=== PATIENT | female | born 1935 | race Caucasian/White ===

== ENCOUNTER 2019-10-10 19:55 | Emergency (ER) | payer MEDICARE, OTHER, SELFPAY ==
--- NOTE | 2019-10-10 20:16 | DI.CT.S_ITS ---
PROCEDURE: CT CERVICAL SPINE WO CON INDICATIONS: fall, takes anticoagulant TECHNIQUE: Noncontrast 3 mm thick sections acquired from the skull base to the T4 level. Sagittal and coronal reformats were then constructed. For radiation dose reduction, the following was used: automated exposure control, adjustment of mA and/or kV according to patient size. COMPARISON: None. FINDINGS: Image quality: Excellent. Bones: No fractures or dislocations. There is 3 mm of anterolisthesis of C4 on C5. Ankylosis of C3 and C4. Multilevel disc space height loss, endplate sclerosis and cystic change, and osteophytosis. Uncovertebral joint hypertrophy. Loss of the cervical spine lordosis. Visualized superior ribs are intact. Soft tissues: Prevertebral soft tissues are normal in thickness. No paravertebral hematomas. No apical pneumothoraces. Patchy airspace opacity in the right upper lobe. Adjacent cystic change. Biapical pleural scarring. Small right thyroid nodule. IMPRESSION: 1. No acute osseous abnormality. 2. Patchy airspace opacity in the right upper lobe. Favor scarring over infectious/inflammatory etiology. 3. 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 Dictated by: Jose Manuel Harvey M.D. on 10/10/2019 at 20:55 Approved by: Jose Manuel Havrey M.D. on 10/10/2019 at 21:04
--- NOTE | 2019-10-10 20:16 | DI.CT.S_ITS ---
PROCEDURE: CT HEAD/BRAIN WO CON INDICATIONS: fall, takes anticoagulant TECHNIQUE: Noncontrast 4.5 mm thick angled axial sections acquired from the foramen magnum to the vertex, with coronal and sagittal reformats. For radiation dose reduction, the following was used: automated exposure control, adjustment of mA and/or kV according to patient size. COMPARISON: None. FINDINGS: Image quality: Excellent. CSF spaces: Basal cisterns are patent. No extra-axial fluid collections. Ventricles are normal in size and shape. Prominent lateral ventricles. Brain: No midline shift. Basal ganglia calcifications. No intracranial masses or hemorrhage. No area of hypodensity in a large vascular distribution to suggest acute infarction. Periventricular hypodensity consistent with chronic microvascular ischemic change. Age-related parenchymal loss. Skull and face: Calvarium and visualized facial bones are intact, without suspicious lesions. Sinuses: Visualized sinuses and mastoids are clear. IMPRESSION: No acute intracranial abnormality. Dictated by: Jose Manuel Harvey M.D. on 10/10/2019 at 20:52 Approved by: Jose Manuel Harvey M.D. on 10/10/2019 at 20:54
[2019-10-10 20:23] VITALS: BP 135/76; PULSE 86; RESP 18; TEMP 37; O2SAT 98; BMI 31.3
[2019-10-10 20:26] LABS: Add Manual Diff / Slide Review NO; Basophils Absolute Auto 100 /uL (0-100); Eosinophils Absolute Auto 100 /uL (0-450); Hematocrit 39.6 % (36-46); Hemoglobin 13.4 g/dL (12.0-16.0); Lymphocytes Absolute Auto 1800 /uL (1100-4500); Lymphocytes Percent Auto 16.4 % (25-40); Mean Corpuscular HGB Conc 33.9 % (30-36); Mean Corpuscular Volume 103.4 fL (80-100); Monocytes Absolute Auto 800 /uL (0-900); Monocytes Percent Auto 7.1 % (3-14); Neutrophils Absolute Auto 8400 /uL (1500-7000); Neutrophils Percent Auto 74.5 % (50-75); Platelet Count 372 X10^3/uL (150-400); Red Blood Cell Count 3.83 X10^6/uL (4.0-5.2); Red Cell Distribution Width 14.5 % (11.6-14.8); White Blood Cell Count 11.3 X10^3/uL (4.5-11.0)
[2019-10-10 20:32] LABS: INR 3.7 (0.9-1.3)
[2019-10-10 20:35] LABS: PTT Partial Thromboplastin Tim 38 SECONDS (26.4-36.2)
[2019-10-10 20:37] LABS: Alanine Aminotransferase 28 IU/L (<35); Albumin 4.5 g/dL (3.5-5.0); Albumin Globulin Ratio 1.4 (1.0-2.8); Alkaline Phosphatase 63 U/L (38-126); Aspartate Aminotransferase 39 IU/L (14-36); BUN Creatinine Ratio 24.7 (6-22); Bilirubin Total 0.8 mg/dL (0.2-1.3); Blood Urea Nitrogen 24 mg/dL (7-17); Calcium 9.2 mg/dL (8.4-10.2); Carbon Dioxide 29 mmol/L (22-32); Chloride 96 mmol/L (98-107); Creatine Kinase 45 U/L (30-135); Globulin 3.2 g/dL (1.7-4.1); Glucose 122 mg/dL (80-110); HEMOLYSIS < 15 (0-50); Potassium 3.6 mmol/L (3.4-5.1); Sodium 136 mmol/L (137-145); Total Protein 7.7 g/dL (6.3-8.2)
[2019-10-10 20:49] LABS: Troponin I 0.029 ng/mL (0.01-0.034)
[2019-10-10 21:25] VITALS: PULSE 75; RESP 29; O2SAT 95
[2019-10-10 21:30] VITALS: PULSE 72; RESP 22; O2SAT 95
[2019-10-10 21:42] VITALS: BP 116/57; PULSE 71; RESP 33; O2SAT 95
--- NOTE | 2019-10-10 21:50 | PC.NURSE ---
Left leg wrapped and dressed before discharge
--- NOTE | 2019-10-10 22:28 | ED_ITS ---
HPI - Fall <Biju MorrellJESUS ALBERTO Kothari - Last Filed: 10/10/19 23:00> General Chief Complaint: Trauma Stated Complaint: Modified trauma Time Seen by Provider: 10/10/19 20:16 Source: patient and family Mode of arrival: Wheelchair Limitations: no limitations History of Present Illness HPI Narrative: This is a 84 year female, nonsmoker, who presents to ED from [facility] via POV for evaluation for head injury since patient takes Coumadin daily for AFib and recent mitral clip procedure done at [facility] on 10/03/19. Patient reports she was working in the garden and tripped on a garden hose and fell backwards and landed on buttock and hit her head on a round. Patient denies losing consciousness, vision change, headache, neck pain, tingling/numbness to extremities, or vomiting since injury. Patient denies having chest pain, breathing difficulty, dizziness prior to the fall. Patient also has large area bruise and skin tear on left lower extremity which was repaired at [facility] before arriving to ED and reports she had received tetanus immunization today. Patient referred to [facility] Emergency room since [facility] CT scan not working. Related Data Home Medications Medication Instructions Recorded Confirmed Aspir-81 10/10/19 bumetanide 10/10/19 digoxin PO DAILY 10/10/19 gabapentin BID 10/10/19 metformin 500 mg PO DAILY 10/10/19 metoprolol succinate 50 mg PO 10/10/19 polyethylene glycol 3350 [Miralax] PRN 10/10/19 potassium chloride meq PO BID 10/10/19 prednisone DAILY 10/10/19 senna 8.6 mg PO 10/10/19 warfarin 0.5 tab PO DAILY 10/10/19 Review of Systems <Biju MorrellNielsJESUS ALBERTO Edmondson - Last Filed: 10/10/19 23:00> Review of Systems Narrative: General: Denies fever, chills, fatigue, malaise, sweats. HEENT: Denies sinus pain, ear pain, sore throat, difficulty swallowing, dizziness. Respiratory: Denies dyspnea, cough, wheezing, hemoptysis, sputum. Cardiovascular: Denies chest pain, palpitations, orthopnea, edema. Gastrointestinal: Denies nausea, vomiting, abdominal pain, diarrhea, constipation, melena. : Denies dysuria, frequency, incontinence, hematuria, urinary retention. Musculoskeletal: Denies weakness, joint pain or bony pain. Skin: HPI Neurologic: See HPI Psychiatric: No concerning psychosocial issues. 12-point review of systems is negative except for those stated above. Patient History <JESUS ALBERTO iDez - Last Filed: 10/10/19 23:00> Medical History Afib (Acute) Heart failure (Acute) Hypertension (Acute) Surgical History History of repair of mitral valve (Acute) Social History Smoking Status: Never smoker Smoking Status: Never smoker Substance Use Type: does not use Exam <JESUS ALBERTO Diez - Last Filed: 10/10/19 23:00> Narrative Exam Narrative: GEN: Alert, oriented x 3, well appearing and nourished, and in no acute distress. Head: Normal cephalic, atraumatic. No scalp or temporal tenderness, palpable mass or rash. EYES: Pupils are equal, round, and reactive to light and accommodation. Extraocular muscles are intact bilaterally. There is no subconjunctival hemorrhage, exudate and sclera non-icteric. ENT: Hearing grossly intact. Nose without bleeding, purulent discharge, septal hematoma or deviation. Turbinate without erythema or swelling. Facial sinuses nontender to palpate. Mucous membrane moist, no mucosal lesion. Throat without erythema, tonsillar hypertrophy or exudate. Uvula in midline, airway patent. Neck: Trachea in midline. No JVD, non-tender without lymphadenopathy. No masses or thyroid megaly. Supple, non-tender and no meningeal signs. CARDIAC: Flow irregular rate and rhythm without murmurs, gallops, or rubs. No chest wall tenderness. No peripheral edema, cyanosis or pallor. Capillary refill is less than 2 seconds. No carotid bruits. RESPIRATORY: Lungs are cleat to auscultate bilaterally. No cough, wheezes, rales, or rhonchi. No stridor, respiratory distress, increase work of breathing, or accessary muscle used. ABD: Abdomen soft, nontender and non-distended. No guarding or rebound tenderness to palpate. Bowel sounds are normal in all 4 quadrants. There is no palpable masses or organomegaly. EXT: Full painless ROM of all extremities with no loss of sensation, strength, effusion or edema. SKIN: Left lateral lower extremity with skin tear and ecchymosis which has been repaired with Steri-Strips from [facility] Emergency room. BACK: Nontender without deformity or crepitance. No flank tenderness. NEUROLOGICAL: Alert and oriented to place, time and person. No facial droops, dysphasia. CN II-XII intact. Strength and sensation symmetric and intact throughout. PSYCHIATRIC: Good judgement and reason, without hallucinations, abnormal affect or abnormal behaviors during the examination. Initial Vital Signs Initial Vital Signs: Vital Signs Temperature 98.6 F 10/10/19 20:23 Pulse Rate 86 10/10/19 20:23 Respiratory Rate 18 10/10/19 20:23 Blood Pressure 135/76 10/10/19 20:23 Pulse Oximetry 98 10/10/19 20:23 <Cuong Cardenas MD - Last Filed: 10/11/19 04:30> Initial Vital Signs Initial Vital Signs: Vital Signs Temperature 98.6 F 10/10/19 20:23 Pulse Rate 86 10/10/19 20:23 Respiratory Rate 18 10/10/19 20:23 Blood Pressure 135/76 10/10/19 20:23 Pulse Oximetry 98 10/10/19 20:23 Scores <JESUS ALBERTO Diez - Last Filed: 10/10/19 23:00> GCS Justice coma scale eye opening: Spontaneous Justice coma scale verbal response: Orientated Justice coma scale motor response: Obey commands [place] coma scale total score: 15 Nexus Score for C-Spine Focal Neurologic deficit present: No Midline spinal tenderness present: No Altered level of conciousness present: No Intoxication present: No Distracting Injury Present: No Nexus Criteria for C-spine: 0 Course <JESUS ALBERTO Diez - Last Filed: 10/10/19 23:00> Orders Ordered: ED Orders 10/10/19 20:15 Complete Blood Count AUTO DIFF Stat Comprehensive Metabolic Panel Stat Partial Thromboplastin Time Stat Prothrombin Time INR Stat Troponin & CK Cardiac Panel Stat 10/10/19 20:16 CT cervical spine wo con Stat CT head/brain wo con Stat EKG-12 Lead Stat Vital Signs Vital signs: Vital Signs - 8 hr 10/10/19 21:25 10/10/19 21:30 10/10/19 21:42 Pulse Rate 75 72 71 Respiratory Rate 29 H 22 33 H Blood Pressure 116/57 L Pulse Oximetry 95 95 95 <Cuong Cardenas MD - Last Filed: 10/11/19 04:30> Orders Ordered: ED Orders 10/10/19 20:15 Complete Blood Count AUTO DIFF Stat Comprehensive Metabolic Panel Stat Partial Thromboplastin Time Stat Prothrombin Time INR Stat Troponin & CK Cardiac Panel Stat 10/10/19 20:16 CT cervical spine wo con Stat CT head/brain wo con Stat EKG-12 Lead Stat Vital Signs Vital signs: Vital Signs - 8 hr 10/10/19 21:25 10/10/19 21:30 10/10/19 21:42 Pulse Rate 75 72 71 Respiratory Rate 29 H 22 33 H Blood Pressure 116/57 L Pulse Oximetry 95 95 95 MDM - Fall <JESUS ALBERTO Diez - Last Filed: 10/10/19 23:00> Differential Diagnosis Differential diagnosis: Likely concussion without loss of consciousness and other (Arrhythmia, dehydration, electrolyte imbalance, fall, intracranial bleed) Medical Records Attestation: I reviewed the patient's medical records. Lab Data Attestation: I reviewed the patient's lab results. Result diagrams: 10/10/19 20:15 10/10/19 20:15 Labs: Lab Results 10/10/19 10/10/19 10/10/19 Range/Units 20:15 20:15 20:15 WBC 11.3 H (4.5-11.0) X10^3/uL RBC 3.83 L (4.0-5.2) X10^6/uL Hgb 13.4 (12.0-16.0) g/dL Hct 39.6 (36-46) % MCV 103.4 H (80-100) fL MCH 35.0 H (26-34) PG MCHC 33.9 (30-36) % RDW 14.5 (11.6-14.8) % Plt Count 372 (150-400) X10^3/uL Neut % (Auto) 74.5 (50-75) % Lymph % (Auto) 16.4 L (25-40) % Barber % (Auto) 7.1 (3-14) % Eos % (Auto) 1.0 L (2-4) % Baso % (Auto) 1.0 (0-2) % Neut # (Auto) 8400 H (1185-7321) /uL Lymph # (Auto) 1800 (8365-5338) /uL Barber # (Auto) 800 (0-900) /uL Eos # (Auto) 100 (0-450) /uL Baso # (Auto) 100 (0-100) /uL PT 42.0 H (10.1-12.7) SECONDS INR 3.7 H (0.9-1.3) APTT 38 H (26.4-36.2) SECONDS Sodium 136 L (137-145) mmol/L Potassium 3.6 (3.4-5.1) mmol/L Chloride 96 L (98-107) mmol/L Carbon Dioxide 29 (22-32) mmol/L BUN 24 H (7-17) mg/dL Creatinine 0.97 (0.52-1.04) mg/dL Estimated GFR 55.0 L (>60) mL/min BUN/Creatinine Ratio 24.7 H (6-22) Glucose 122 H (80-110) mg/dL Calcium 9.2 (8.4-10.2) mg/dL Total Bilirubin 0.8 (0.2-1.3) mg/dL AST 39 H (14-36) IU/L ALT 28 (<35) IU/L Alkaline Phosphatase 63 (38-126) U/L Total Creatine Kinase 45 (30-135) U/L CK-MB (CK-2) TNP CK-MB (CK-2) Rel Index TNP Troponin I 0.029 (0.01-0.034) ng/mL Total Protein 7.7 (6.3-8.2) g/dL Albumin 4.5 (3.5-5.0) g/dL Globulin 3.2 (1.7-4.1) g/dL Albumin/Globulin Ratio 1.4 (1.0-2.8) Imaging Data CT scan - head: Radiologist's Impression: [address] [address] [address] Scan Report Signed Patient: Junaid Jhaveri [facility]#: [id number] : 8Acct:[id number] Age/Sex: 84 / FDate of Service: 10/10/19 Loc: ED Accession Number: [id number] Procedure: CT head/brain wo con Ordering Provider: Biju Pettit PROCEDURE: CT HEAD/BRAIN WO CON INDICATIONS: fall, takes anticoagulant TECHNIQUE: Noncontrast 4.5 mm thick angled axial sections acquired from the foramen magnum to the vertex, with coronal and sagittal reformats. For radiation dose reduction, the following was used: automated exposure control, adjustment of mA and/or kV according to patient size. COMPARISON: None. FINDINGS: Image quality: Excellent. CSF spaces: Basal cisterns are patent. No extra-axial fluid collections. Ventricles are normal in size and shape. Prominent lateral ventricles. Brain: No midline shift. Basal ganglia calcifications. No intracranial masses or hemorrhage. No area of hypodensity in a large vascular distribution to suggest acute infarction. Periventricular hypodensity consistent with chronic microvascular ischemic change. Age-related parenchymal loss. Skull and face: Calvarium and visualized facial bones are intact, without suspicious lesions. Sinuses: Visualized sinuses and mastoids are clear. IMPRESSION: No acute intracranial abnormality. Dictated by: Jose Manuel Harvey M.D. on 10/10/2019 at 20:52 Approved by: Jose Manuel Harvey M.D. on 10/10/2019 at 20:54 CT- C spine: Radiologist's Impression: [place] [address] CT Scan Report Signed Patient: Junaid Jhaveri [facility]#: [id number] : 8Acct:[id number] Age/Sex: 84 / FDate of Service: 10/10/19 Loc: ED Accession Number: [id number] Procedure: CT cervical spine wo con Ordering Provider: Biju Pettit [facility] PROCEDURE: CT CERVICAL SPINE WO CON INDICATIONS: fall, takes anticoagulant TECHNIQUE: Noncontrast 3 mm thick sections acquired from the skull base to the T4 level. Sagittal and coronal reformats were then constructed. For radiation dose reduction, the following was used: automated exposure control, adjustment of mA and/or kV according to patient size. COMPARISON: None. FINDINGS: Image quality: Excellent. Bones: No fractures or dislocations. There is 3 mm of anterolisthesis of C4 on C5. Ankylosis of C3 and C4. Multilevel disc space height loss, endplate sclerosis and cystic change, and osteophytosis. Uncovertebral joint hypertrophy. Loss of the cervical spine lordosis. Visualized superior ribs are intact. Soft tissues: Prevertebral soft tissues are normal in thickness. No paravertebral hematomas. No apical pneumothoraces. Patchy airspace opacity in the right upper lobe. Adjacent cystic change. Biapical pleural scarring. Small right thyroid nodule. IMPRESSION: 1. No acute osseous abnormality. 2. Patchy airspace opacity in the right upper lobe. Favor scarring over infectious/inflammatory etiology. 3. 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 Dictated by: Jose Manuel Harvey M.D. on 10/10/2019 at 20:55 Approved by: Jose Manuel Harvey M.D. on 10/10/2019 at 21:04 ECG Data Attestation: I personally reviewed and interpreted this ECG as follows: Prior ECG tracings: not available for review Interpretation: A fib with PVC rate at 70. Normal [place]. CA interval *, QRS duration 94, QT/QTC 396/[address] and T-wave abnormal T MDM Narrative Medical decision making narrative: This is a 84-year-old female who had closed head injury after she tripped on a garden hose and who is on anticoagulant Coumadin for AFib and mitral valve clip procedure done 10/03/19 at [facility]. Modified trauma has been initiated. Head CT and C-spine CT without acute findings. C-spine CT result shows moderate to severe degenerate changes in cervical spine. Incidental finding of patchy airspace opacity in right upper lobe which is likely from old scar since patient does not have dyspnea, short of breath. EKG shows AFib with PVC rate at 70. Mild leukocytosis Of 11.3 with stable H&H of 13.4 and 39.6. Supratherapeutic INR level of 3.7. According to patient goal of INR is 2. Slightly increased BUN and urine and creatinine ratio of 24 and 24.7 and normal creatinine level of 0.97 with slightly decreased estimated GFR of 55. Patient might have been slightly dehydrated. Normal physical and neurological exam. Skin tear on left lower leg was repaired by Steri-Strips by [facility]. Tetanus immunization was updated. Patient has no complaints such as headache, vision change, weakness, cervical tenderness. Patient advised to follow up by calling doctor's office tomorrow before taking Coumadin and informed INR is 3.7 today for further instruction. Advised to take [id number] Tylenol as needed for discomfort. Return precautions were discussed with patient and patient and son verbalized understanding. <Cuong Cardenas MD - Last Filed: 10/11/19 04:30> Lab Data Labs: Lab Results 10/10/19 10/10/19 10/10/19 Range/Units 20:15 20:15 20:15 WBC 11.3 H (4.5-11.0) X10^3/uL RBC 3.83 L (4.0-5.2) X10^6/uL Hgb 13.4 (12.0-16.0) g/dL Hct 39.6 (36-46) % MCV 103.4 H (80-100) fL MCH 35.0 H (26-34) PG MCHC 33.9 (30-36) % RDW 14.5 (11.6-14.8) % Plt Count 372 (150-400) X10^3/uL Neut % (Auto) 74.5 (50-75) % Lymph % (Auto) 16.4 L (25-40) % Barber % (Auto) 7.1 (3-14) % Eos % (Auto) 1.0 L (2-4) % Baso % (Auto) 1.0 (0-2) % Neut # (Auto) 8400 H (9880-5020) /uL Lymph # (Auto) 1800 (7059-0798) /uL Barber # (Auto) 800 (0-900) /uL Eos # (Auto) 100 (0-450) /uL Baso # (Auto) 100 (0-100) /uL PT 42.0 H (10.1-12.7) SECONDS INR 3.7 H (0.9-1.3) APTT 38 H (26.4-36.2) SECONDS Sodium 136 L (137-145) mmol/L Potassium 3.6 (3.4-5.1) mmol/L Chloride 96 L (98-107) mmol/L Carbon Dioxide 29 (22-32) mmol/L BUN 24 H (7-17) mg/dL Creatinine 0.97 (0.52-1.04) mg/dL Estimated GFR 55.0 L (>60) mL/min BUN/Creatinine Ratio 24.7 H (6-22) Glucose 122 H (80-110) mg/dL Calcium 9.2 (8.4-10.2) mg/dL Total Bilirubin 0.8 (0.2-1.3) mg/dL AST 39 H (14-36) IU/L ALT 28 (<35) IU/L Alkaline Phosphatase 63 (38-126) U/L Total Creatine Kinase 45 (30-135) U/L CK-MB (CK-2) TNP CK-MB (CK-2) Rel Index TNP Troponin I 0.029 (0.01-0.034) ng/mL Total Protein 7.7 (6.3-8.2) g/dL Albumin 4.5 (3.5-5.0) g/dL Globulin 3.2 (1.7-4.1) g/dL Albumin/Globulin Ratio 1.4 (1.0-2.8) Discharge Plan Departure Patient Disposition: Home Clinical Impression: Supratherapeutic INR, Skin tear CHI (closed head injury) Qualifiers: Encounter type: initial encounter Qualified Code(s): S09.90XA - Unspecified injury of head, initial encounter Discharge Date/Time: 10/10/19 21:52 Instructions: DI for Closed Head Injury, Skin Wound Activity Restrictions/Additional Instructions: You have been diagnosed with [closed head injury from a fall. Skin tear on left lower extremity which has been repaired with Steri-Strips at [facility]. INR today is 3.7 which may be slightly supratherapeutic. Please contact your doctor tomorrow before taking a next dose Coumadin for further direction. Blood test appears to be you may have mild dehydration with slightly elevated/creatinine ratio of 24 and 24.7. Otherwise, unremarkable blood test. EKG is AFib rate control to 70. Head CT and C-spine CT shows no acute findings.]. What to do: *Take your medications as directed. *Follow up with your primary care provider in 2-3 days, call for an appointment. Let them know you were seen in the ED and that we asked you to be seen in follow up. *Return to ED if you have any new, worsening, or concerning symptoms, such as [chest pain, breathing difficulty, unable to tolerate fluids, headache, vision change, weakness to extremities, seizure activities, or any acute concerns]. Prescriptions: No Action Aspir-81 RF: 0 bumetanide 2 mg tablet RF: 0 gabapentin 300 mg capsule BID RF: 0 prednisone 10 mg tablet DAILY RF: 0 polyethylene glycol 3350 [Miralax] 17 gram Powder In Packet PRN (Reason: Constipation) RF: 0 digoxin 125 mcg (0.125 mg) tablet PO DAILY RF: 0 potassium chloride 20 mEq tablet extended release PO BID RF: 0 metformin 500 mg PO DAILY RF: 0 metoprolol succinate 50 mg PO RF: 0 senna 8.6 mg PO RF: 0 warfarin 0.5 tab PO DAILY RF: 0 Referrals: Darryn Scanlon MD [Primary Care Provider] - <Cuong Cardenas MD - Last Filed: 10/11/19 04:30> Cosign ED Attending Cosignature Attestation: I was immediately available in the department for consultation. This documentation has been reviewed and I agree with assessment and plan. Supervised by Cuong Cardenas MD
== END 2019-10-10 21:52 | disposition home or self-care (01) ==
PROVIDERS: Emergency Provider Nurse Practitioner Family; PCP Family Medicine
DX: S09.90XA Unspecified injury of head, initial encounter (principal); S81.812A Laceration without foreign body, left lower leg, initial encounter; R79.1 Abnormal coagulation profile; I48.91 Unspecified atrial fibrillation; Z79.01 Long term (current) use of anticoagulants; W01.0XXA Fall on same level from slipping, tripping and stumbling without subsequent striking against object, initial encounter
CPT/HCPCS: 36415; 70450; 72125; 80053; 82550; 84484; 85025; 85610; 85730; 93005; 99284

== ENCOUNTER 2019-12-14 11:14 | Emergency (ER) | payer MEDICARE, OTHER, SELFPAY ==
[2019-12-14 11:23] VITALS: BP 140/86; PULSE 90; RESP 20; TEMP 36.9; O2SAT 96; BMI 30.2
--- NOTE | 2019-12-14 11:25 | DI.RAD.S_ITS ---
PROCEDURE: XR CHEST 2V INDICATIONS: dyspnea, orthopnea TECHNIQUE: 2 views of the chest were acquired. COMPARISON: None. FINDINGS: Surgical changes and devices: A prosthetic aortic valve is noted. Lungs and pleura: Mild prominence of the central pulmonary vasculature is seen without a definite airspace opacity. No pleural effusions or pneumothorax. Mediastinum: Mediastinal contours are normal. Heart size is normal. Mild atherosclerotic calcifications are seen in the aorta. Bones and chest wall: No suspicious bony abnormalities. Soft tissues appear unremarkable. Degenerative changes are seen in the spine. IMPRESSION: Mild prominence of the central pulmonary vasculature. No acute airspace consolidation is seen. Dictated by: César Malcolm M.D. on 12/14/2019 at 11:53 Approved by: César Malcolm M.D. on 12/14/2019 at 11:57
[2019-12-14 11:27] VITALS: PULSE 94; RESP 24; O2SAT 98
[2019-12-14 11:30] VITALS: BP 128/67; PULSE 87; RESP 22; O2SAT 97
[2019-12-14 11:34] LABS: Add Manual Diff / Slide Review NO; Basophils Absolute Auto 100 /uL (0-100); Basophils Percent Auto 0.4 % (0-2); Eosinophils Absolute Auto 200 /uL (0-450); Eosinophils Percent Auto 1.7 % (2-4); Lymphocytes Absolute Auto 1700 /uL (1100-4500); Lymphocytes Percent Auto 14.5 % (25-40); Mean Corpuscular HGB Conc 32.7 % (30-36); Mean Corpuscular Hemoglobin 34.9 PG (26-34); Mean Corpuscular Volume 106.9 fL (80-100); Monocytes Absolute Auto 1100 /uL (0-900); Monocytes Percent Auto 9.2 % (3-14); Neutrophils Absolute Auto 8600 /uL (1500-7000); Neutrophils Percent Auto 74.2 % (50-75); Platelet Count 244 X10^3/uL (150-400); Red Blood Cell Count 3.74 X10^6/uL (4.0-5.2); Red Cell Distribution Width 14.8 % (11.6-14.8); White Blood Cell Count 11.6 X10^3/uL (4.5-11.0)
--- NOTE | 2019-12-14 11:34 | ED_ITS ---
HPI - SOB/Dyspnea General Chief Complaint: Shortness of Breath/Dyspnea Stated Complaint: Having a hard time breathing Time Seen by Provider: 12/14/19 11:15 Source: patient and family Mode of arrival: Wheelchair Limitations: no limitations History of Present Illness HPI Narrative: 84F non smoker with history of chronic Afib on coumadin, CHF, TAVR and recent heart cath presents with a chief complaint of few weeks of progressive shortness of breath but notable changer fixer the past few days. She states that she becomes increasingly short of breath with minimal exertion and also when she lays flat. She has had increasing swelling in her lower extremities and states that she has gained 11 lb the past 3 4 days. She states that she was prescribed a ?water pill? relatively recently but did not take it because known explained to her what it was for. She denies any dizziness, weakness or lightheadedness. She denies any dietary change. She denies any headache, blurred vision, sore throat or cough. MD Complaint: shortness of breath Onset (ago): day(s) Severity: moderate Consistency/Duration: constant Relieving factors: rest and upright position Exacerbating factors: lying flat and exertion Known history of: congestive heart failure Treatment prior to arrival: none Related Data Home oxygen amount: none Home Medications Medication Instructions Recorded Confirmed Aspir-81 81 mg PO DAILY 10/10/19 12/14/19 bumetanide 2 mg PO BID 10/10/19 12/14/19 digoxin 125 mcg PO DAILY 10/10/19 12/14/19 gabapentin 300 mg PO BID 10/10/19 12/14/19 metformin 500 mg PO DAILY 10/10/19 12/14/19 metoprolol succinate 50 mg PO BID 10/10/19 12/14/19 polyethylene glycol 3350 [Miralax] 17 g PO PRN PRN 10/10/19 12/14/19 potassium chloride 20 meq PO BID 10/10/19 12/14/19 prednisone 10 mg PO DAILY 10/10/19 12/14/19 senna 2.5 mg PO PRN PRN 10/10/19 12/14/19 warfarin 2.5 mg PO DAILY 10/10/19 12/14/19 Allergies Allergy/AdvReac Type Severity Reaction Status Date / Time No Known Drug Allergies Allergy Verified 12/14/19 11:25 Review of Systems Constitutional Constitutional: Denies chills, Denies fatigue, Denies fever(s), Denies frequent falls, Denies lethargy and Denies weakness Eyes Eyes: Denies change in vision, Denies eye discharge, Denies irritation and Denies loss of vision ENT Ears, Nose, Mouth, and Throat: Denies change in voice, Denies dizziness, Denies neck pain, Denies sore throat and Denies throat swelling Cardiovascular Cardiovascular: Denies chest pain, Denies irregular heart rhythm, Reports leg edema, Denies lightheadedness, Denies palpitations, Reports dyspnea, Reports dyspnea on exertion and Reports orthopnea Respiratory Respiratory: Denies cough, Reports dyspnea, Reports dyspnea on exertion and Denies wheezing Gastrointestinal Gastrointestinal: Denies abdominal pain, Denies change in bowel habits, Denies diarrhea, Denies nausea and Denies vomiting Musculoskeletal Musculoskeletal: Denies neck pain and Denies numbness Integumentary/Breasts Skin/Breast: Denies pruritus, Denies erythema, Denies rash and Denies wounds Neurologic Neurologic: Denies behavioral changes, Denies confusion, Denies dizziness, Denies frequent falls, Denies loss of vision, Denies numbness and Denies weakness Psychiatric Psychiatric: Denies anxiety, Denies behavioral changes, Denies confusion, Denies depression, Denies homicidal ideation and Denies suicidal ideation Endocrine Endocrine: Denies fatigue, Denies flushing and Denies palpitations Hematologic/Lymphatic Hematologic/Lymphatic: Denies easy bruising Allergic/Immunologic Allergic/Immunologic: Denies urticaria, Denies throat swelling and Denies wheezing Patient History Medical History Afib (Acute) Heart failure (Acute) Hypertension (Acute) Surgical History History of repair of mitral valve (Acute) Social History Smoking Status: Never smoker Smoking Status: Never smoker Substance Use Type: does not use Exam Narrative Exam Narrative: GENERAL: [84] year old patient appears stated age. Well- nourished, well-developed patient, in mild distress. HEAD: Atraumatic. Normocephalic. EYES: Pupils equal round and reactive. Extraocular motions intact. No scleral icterus. No injection or drainage. ENT: Nose without bleeding, purulent drainage. Throat without erythema, tonsillar hypertrophy or exudate. Airway patent. NECK: Trachea midline. Non tender CARDIOVASCULAR: Irregular rate and rhythm without murmurs, gallops, or rubs. RESPIRATORY: Decreased breath sounds bilaterally, faint crackles in bilateral bases GASTROINTESTINAL: Abdomen soft, non-tender, nondistended. EXTREMITIES: 1+ pitting edema bilateral lower extremities, no joint tenderness. BACK: Nontender without deformity or crepitance. No flank tenderness. NEURO: AOx3. SKIN: No rash or erythema of visible areas Initial Vital Signs Initial Vital Signs: Vital Signs Temperature 98.5 F 12/14/19 11:23 Pulse Rate 90 12/14/19 11:23 Respiratory Rate 20 12/14/19 11:23 Blood Pressure 140/86 12/14/19 11:23 Pulse Oximetry 96 12/14/19 11:23 Course Orders Ordered: ED Orders 12/14/19 11:24 Consult to Respiratory Therapy Evaluate & Treat 12/14/19 11:25 XR chest 2V Stat Basic Metabolic Panel Stat Complete Blood Count AUTO DIFF Stat Lactate (Lactic Acid) Stat Magnesium Stat NT-proBNP (BNP-Adult 18+) Stat Procalcitonin Stat Prothrombin Time INR Stat Troponin & CK Cardiac Panel Stat EKG-12 Lead Stat 12/14/19 12:17 Urine Microscopic Stat Discontinued Medications Furosemide (Lasix) 40 mg IV NOW ONE Stop: 12/14/19 11:35 Last Admin: 12/14/19 11:45 Dose: 40 mg Documented by: MEHUL Reevaluation(s) Reevaluation #1: patient makes dilute urine after one dose of lasix. She ambulates without difficulty, demonstrating normal ambulatory pulse ox and no need for supplemental oxygen. Additionally she denies any UTI symptoms and I explained that given lack of symptoms, and potential for unintended interactions between ABX and Coumadin we will hold off on treating UTI. She understands return precautions, need for medical compliance and importance of follow up. Consultations Consultation #1: call to her cardio group at [facility]. I've reviewed the patient history, exam, labs, imaging, and response to therapy. He is in complete agreement with the plan and has no significant additions. Vital Signs Vital signs: Vital Signs - 8 hr 12/14/19 11:23 12/14/19 11:27 12/14/19 11:30 Temperature 98.5 F Pulse Rate 90 94 H 87 Respiratory Rate 20 24 22 Blood Pressure 140/86 128/67 Pulse Oximetry 96 98 97 12/14/19 11:52 12/14/19 12:00 12/14/19 12:30 Temperature Pulse Rate 82 80 79 Respiratory Rate 33 H 27 H 28 H Blood Pressure 128/67 120/57 L Pulse Oximetry 95 96 98 MDM - SOB/Dyspnea Lab Data Result diagrams: 12/14/19 11:25 12/14/19 11:25 Labs: Lab Results 12/14/19 12/14/19 12/14/19 Range/Units 11:25 11:25 11:25 WBC 11.6 H (4.5-11.0) X10^3/uL RBC 3.74 L (4.0-5.2) X10^6/uL Hgb 13.0 (12.0-16.0) g/dL Hct 40.0 (36-46) % MCV 106.9 H (80-100) fL MCH 34.9 H (26-34) PG MCHC 32.7 (30-36) % RDW 14.8 (11.6-14.8) % Plt Count 244 (150-400) X10^3/uL Neut % (Auto) 74.2 (50-75) % Lymph % (Auto) 14.5 L (25-40) % [place] % (Auto) 9.2 (3-14) % Eos % (Auto) 1.7 L (2-4) % Baso % (Auto) 0.4 (0-2) % Neut # (Auto) 8600 H (8869-4119) /uL Lymph # (Auto) 1700 (0382-0404) /uL [place] # (Auto) 1100 H (0-900) /uL Eos # (Auto) 200 (0-450) /uL Baso # (Auto) 100 (0-100) /uL PT 30.1 H (10.1-12.7) SECONDS INR 2.6 H (0.9-1.3) Sodium 139 (137-145) mmol/L Potassium 5.4 H (3.4-5.1) mmol/L Chloride 106 (98-107) mmol/L Carbon Dioxide 28 (22-32) mmol/L BUN 18 H (7-17) mg/dL Creatinine 0.87 (0.52-1.04) mg/dL Estimated GFR > 60.0 (>60) mL/min BUN/Creatinine Ratio 20.7 (6-22) Glucose 105 (80-110) mg/dL Lactate (0.7-2.1) mmol/L Calcium 9.4 (8.4-10.2) mg/dL Magnesium 2.0 (1.6-2.3) mg/dL Total Creatine Kinase 41 (30-135) U/L CK-MB (CK-2) TNP CK-MB (CK-2) Rel Index TNP Troponin I 0.023 (0.01-0.034) ng/mL NT-Pro-B Natriuret Pep 2470 H (<450) pg/mL Procalcitonin (<0.5) ng/mL Urine RBC (0-5/HPF) Urine WBC (0-5/HPF) Ur Squamous Epith Cells (0-5/HPF) Amorphous Sediment Urine Bacteria (None) Ur Culture Indicated? 12/14/19 12/14/19 12/14/19 Range/Units 11:25 11:25 12:17 WBC (4.5-11.0) X10^3/uL RBC (4.0-5.2) X10^6/uL Hgb (12.0-16.0) g/dL Hct (36-46) % MCV (80-100) fL MCH (26-34) PG MCHC (30-36) % RDW (11.6-14.8) % Plt Count (150-400) X10^3/uL Neut % (Auto) (50-75) % Lymph % (Auto) (25-40) % [place] % (Auto) (3-14) % Eos % (Auto) (2-4) % Baso % (Auto) (0-2) % Neut # (Auto) (7087-9255) /uL Lymph # (Auto) (5638-4388) /uL [place] # (Auto) (0-900) /uL Eos # (Auto) (0-450) /uL Baso # (Auto) (0-100) /uL PT (10.1-12.7) SECONDS INR (0.9-1.3) Sodium (137-145) mmol/L Potassium (3.4-5.1) mmol/L Chloride (98-107) mmol/L Carbon Dioxide (22-32) mmol/L BUN (7-17) mg/dL Creatinine (0.52-1.04) mg/dL Estimated GFR (>60) mL/min BUN/Creatinine Ratio (6-22) Glucose (80-110) mg/dL Lactate 1.9 (0.7-2.1) mmol/L Calcium (8.4-10.2) mg/dL Magnesium (1.6-2.3) mg/dL Total Creatine Kinase (30-135) U/L CK-MB (CK-2) CK-MB (CK-2) Rel Index Troponin I (0.01-0.034) ng/mL NT-Pro-B Natriuret Pep (<450) pg/mL Procalcitonin < 0.05 (<0.5) ng/mL Urine RBC None seen (0-5/HPF) Urine WBC 5-10/hpf H (0-5/HPF) Ur Squamous Epith Cells 5-10 /hpf H (0-5/HPF) Amorphous Sediment 2+ Urine Bacteria None seen (None) Ur Culture Indicated? Cult not indicated Urine Dip Bedside Urine Glucose Negative Bedside Urine Bilirubin - Negative Bedside Urine Ketone - Negative Urine Specific [place] 1.020 Bedside Urine Occult Blood - Negative Bedside Urine pH 6.0 Bedside Urine Protein - Negative Bedside Urine Urobilinogen - Negative Bedside Urine Nitrite - Negative Bedside Urine Leukocytes + 70 Esterase Imaging Data Chest x-ray: Radiologist's Impression: [address] [address] XRay Report Signed Patient: Junaid Jhaveri [facility]#: [id number] : 8Acct:[id number] Age/Sex: 84 / FDate of Service: 12/14/19 Loc: ED Accession Number: [id number] Procedure: XR chest 2V Ordering Provider: Andre Garcia D.O. PROCEDURE: XR CHEST 2V INDICATIONS: dyspnea, orthopnea TECHNIQUE: 2 views of the chest were acquired. COMPARISON: None. FINDINGS: Surgical changes and devices: A prosthetic aortic valve is noted. Lungs and pleura: Mild prominence of the central pulmonary vasculature is seen without a definite airspace opacity. No pleural effusions or pneumothorax. Mediastinum: Mediastinal contours are normal. Heart size is normal. Mild atherosclerotic calcifications are seen in the aorta. Bones and chest wall: No suspicious bony abnormalities. Soft tissues appear unremarkable. Degenerative changes are seen in the spine. IMPRESSION: Mild prominence of the central pulmonary vasculature. No acute airspace consolidation is seen. Dictated by: César Malcolm M.D. on 12/14/2019 at 11:53 Approved by: César Malcolm M.D. on 12/14/2019 at 11:57 ECG Data Attestation: I personally reviewed and interpreted this ECG as follows: Prior ECG tracings: available for review Interpretation: EKG i demonstrates AFib with rate 73 and free of any signs of ischemia or ectopy. No ST segmental elevation or depression. No T wave inversions Discharge Plan Departure Patient Disposition: Home Clinical Impression: Congestive heart failure Qualifiers: Heart failure type: unspecified Heart failure chronicity: acute Qualified Code(s): I50.9 - Heart failure, unspecified Discharge Date/Time: 12/14/19 13:01 Instructions: DI for Heart Failure Activity Restrictions/Additional Instructions: *You have been diagnosed with [acute exacerbation of congestive heart failure, likely a consequence of not taking her medications as directed.] *What to do: *Take medications as directed: I have been in contact with your cardiology group to discuss your history, exam findings, labs, chest x-ray and they are in agreement with the plan to encourage you to take medications as directed and contact the office to arrange follow-up *Follow up with your primary care provider or leather piece inspector in 2-3 days, lynn nader for an appointment. Let them know you were seen in the Emergency Department and that we ask that you be seen in follow up *Return to ER if you should have any new, worsening or concerning symptoms, such as [ chest pain, increased weight gain, difficulty breathing or other bothersome symptoms] There is a very subtle suggestion of a mild urine infection, but because you have no symptoms and because an antibiotics can alter your blood thinner levels we will NOT treat your for this unless you develop symptoms Prescriptions: No Action Aspir-81 81 mg PO DAILY RF: 0 bumetanide 2 mg tablet 2 mg PO BID RF: 0 gabapentin 300 mg capsule 300 mg PO BID RF: 0 prednisone 10 mg tablet 10 mg PO DAILY RF: 0 polyethylene glycol 3350 [Miralax] 17 gram Powder In Packet 17 g PO PRN PRN (Reason: Constipation) RF: 0 digoxin 125 mcg (0.125 mg) tablet 125 mcg PO DAILY RF: 0 potassium chloride 20 mEq tablet extended release 20 meq PO BID RF: 0 metformin 500 mg PO DAILY RF: 0 metoprolol succinate 50 mg PO BID RF: 0 senna 2.5 mg PO PRN PRN (Reason: Constipation) RF: 0 warfarin 2.5 mg PO DAILY RF: 0 Referrals: Darryn Scanlon MD [Primary Care Provider] -
[2019-12-14 11:39] LABS: INR 2.6 (0.9-1.3); Prothrombin Time 30.1 SECONDS (10.1-12.7)
[2019-12-14 11:42] LABS: Lactate (Lactic Acid) 1.9 mmol/L (0.7-2.1)
[2019-12-14 11:44] LABS: BUN Creatinine Ratio 20.7 (6-22); Blood Urea Nitrogen 18 mg/dL (7-17); Calcium 9.4 mg/dL (8.4-10.2); Carbon Dioxide 28 mmol/L (22-32); Chloride 106 mmol/L (98-107); Creatine Kinase 41 U/L (30-135); Estimated Glomerular Filt Rate > 60.0 mL/min (>60); Glucose 105 mg/dL (80-110); Sodium 139 mmol/L (137-145)
[2019-12-14 11:45] LABS: HEMOLYSIS 118 (0-50); Potassium 5.4 mmol/L (3.4-5.1)
[2019-12-14] MEDS: FUROSEMIDE 40 MG/4 ML VIAL IV (11:45)
[2019-12-14 11:52] VITALS: BP 128/67; PULSE 82; RESP 33; O2SAT 95
[2019-12-14 11:56] LABS: NT-proBNP (BNP-Adult 18+) 2470 pg/mL (<450); Troponin I 0.023 ng/mL (0.01-0.034)
[2019-12-14 12:00] VITALS: BP 120/57; PULSE 80; RESP 27; O2SAT 96
[2019-12-14 12:06] LABS: Procalcitonin < 0.05 ng/mL (<0.5)
[2019-12-14 12:30] VITALS: PULSE 79; RESP 28; O2SAT 98
[2019-12-14 12:30] LABS: Bacteria Urine None Seen; RBC Urine None Seen (0-5/HPF)
[2019-12-14 12:43] LABS: Amorphous Sediment Urine 2+; Squamous Epithelial Cell Urine 5-10 /HPF (0-5/HPF); WBC Urine 5-10/HPF (0-5/HPF)
[2019-12-14 12:44] LABS: Culture Indicated Urine Cult Not Indicated
== END 2019-12-14 13:01 | disposition home or self-care (01) ==
PROVIDERS: Emergency Provider Emergency Medicine; PCP Family Medicine; Referring Provider Emergency Medicine
DX: I50.9 Heart failure, unspecified (principal); R06.02 Shortness of breath; I48.91 Unspecified atrial fibrillation; Z79.01 Long term (current) use of anticoagulants; R60.9 Edema, unspecified
CPT/HCPCS: 36415; 71046; 80048; 81003; 81015; 82550; 83605; 83735; 83880; 84145; 84484; 85025; 85610; 93005; 93010; 96374; 99284; J1940